=== PATIENT | female | born 1970 | race Caucasian/White ===

== ENCOUNTER 2025-06-03 18:04 | Emergency (ER) | payer OTHER, SELFPAY ==
[2025-06-03 18:05] VITALS: BP 165/95; PULSE 85; RESP 16; TEMP 36.8; O2SAT 100; BMI 23.6
--- NOTE | 2025-06-03 18:37 | RAD_ITS ---
PROCEDURE: RIGHT WRIST MIN 3 VIEWS; HAND MIN 3 VIEWS 06/03/2025 REASON FOR EXAM: SMASHED BY SHOPPING CART TECHNIQUE: Procedure Code: RADWR; ZACH Modality: DX Procedure: WRIST MIN 3 VIEWS; HAND MIN 3 VIEWS COMPARISON: None. FINDINGS: No acute fracture or dislocation. Alignment is anatomic. Mild diffuse interphalangeal joint space narrowing. No osseous erosion or destruction. No appreciable soft tissue swelling. RAD/Hand Min 3 Views IMPRESSION: No acute fracture or dislocation. Reading Location: [id number]
--- NOTE | 2025-06-03 18:37 | RAD_ITS ---
PROCEDURE: RIGHT WRIST MIN 3 VIEWS; HAND MIN 3 VIEWS 06/03/2025 REASON FOR EXAM: SMASHED BY SHOPPING CART TECHNIQUE: Procedure Code: RADWR; ZACH Modality: DX Procedure: WRIST MIN 3 VIEWS; HAND MIN 3 VIEWS COMPARISON: None. FINDINGS: No acute fracture or dislocation. Alignment is anatomic. Mild diffuse interphalangeal joint space narrowing. No osseous erosion or destruction. No appreciable soft tissue swelling. RAD/Wrist min 3 Views IMPRESSION: No acute fracture or dislocation. Reading Location: [id number]
--- NOTE | 2025-06-03 20:56 | EDS_ITS ---
HPI History of Present Illness HPI Narrative: Patient presents with right hand injury that occurred today while she was at work. Patient states she hit her hand on a metal pole of a cart when another person pushed another cart into her hand. Patient states her pain is aching. Patient states it is worse with any movement or lifting. Patient admits to some tingling sensation in her hand. Patient denies any weakness. Patient states her pain is better with rest. Chief Complaint: Upper Extremity Injury Informant: patient Occured/Mechanism Mechanism/Context: Yes blunt trauma Onset/Context/Timing Onset: Today Context: Sudden Onset Timing: Continuous Quality of Pain: Aching Location: Right hand Worsened by: Movement, lifting Relieved by: Rest Associated Symptoms Associated Symptoms: Positive for Parasthesia; Negative for Weakness or Loss of Funtion PFSH PFSH Medical History no medical history no medical history Allergy/AdvReac Type Severity Reaction Status Date / Time No Known Allergies Allergy Verified 06/03/25 18:06 Family History no significant family his Surgical History H/O LEEP Surgical History no surgical history Social History Smoking Status: Never smoker ROS ROS ED Constitutional Constitutional ED: Denies chills or fever(s) Eyes Eyes: Denies blurry vision or change in vision ENT ENT ED: Denies rhinorrhea or sore throat Cardiovascular Cardiovascular: Denies chest pain or palpitations Respiratory/Chest Respiratory/Chest: Denies cough or dyspnea Gastrointestinal Gastrointestinal: Denies nausea or vomiting Genitourinary Genitourinary ED: Denies dysuria or hematuria Musculoskeletal Musculoskeletal: Denies back pain or neck pain Integumentary Denies abscess or rash Neurologic Neurologic: Denies headache(s) or weakness Allergic/Immunologic Allergic/Immunologic ED: Denies mouth swelling or urticaria EXAM Physical Exam Const Vital Signs: 06/03/25 18:05 Temperature 98.3 F Temperature Source Oral Pulse Rate 85 Respiratory Rate 16 Blood Pressure 165/95 H Blood Pressure Mean 118 Pulse Ox 100 Oxygen Delivery Method Room Air Positive well nourished and well developed General Appearance ED: well developed and NAD HEENT Reports moist mucous membranes Neck full ROM and supple Extremity Extremity Narrative: There is tenderness with mild edema and ecchymosis over the dorsal aspect of the 3rd and 4th metacarpals of the right hand. There is also some ecchymosis on the palmar aspect. There is no deformity noted. Range of motion was slightly limited in all motions of the right hand secondary to pain. Sensation was intact to light touch in the radial, median, and ulnar areas. Strength is 5/5 in the radial, median, and ulnar areas. Radial pulses are equal bilaterally. Neuro oriented x3, CN's II-XII intact bilaterally, moves all extremities, no focal motor deficits and no sensory deficits noted Sensorium / Orientation: alert Motor Exam: strength 5/5 throughout Psych mental status grossly normal Skin Skin Narrative: There is a superficial abrasion over the dorsal aspect of the right hand. There is no active bleeding noted. MDM MDM MDM Narrative Medical decision making narrative: Differential diagnosis includes fracture, contusion, and sprain. X-rays of the right wrist will be obtained to assess for fracture. X-rays of the right hand will be obtained to assess for fracture. Radiography Diagnostic Testing: Clinical Impression(s) from Imaging Studies Hand X-Ray 06/03/25 18:37 IMPRESSION: No acute fracture or dislocation. Reading Location: [facility] Wrist X-Ray 06/03/25 18:37 IMPRESSION: No acute fracture or dislocation. Reading Location: [facility] X-rays of the right hand were obtained. There are 3 views. On my independent interpretation, there is no acute fracture. There is no dislocation. There is no soft tissue swelling. Radiologist also interpreted the x-rays and agrees. X-rays of the right wrist were obtained. There are 3 views. On my independent interpretation, there is no acute fracture. There is no dislocation. There is no soft tissue swelling. Radiologist also interpreted the x-rays and agrees. Treatment and Re-Evaluation Narrative: Patient was given a tetanus booster. Patient was advised of her findings. Patient was given a Velcro wrist splint. Patient was instructed to ice and elevate the right wrist. Patient was instructed to take Tylenol or ibuprofen as needed for pain. Patient was given restrictions for work. Patient was instructed to follow-up with her primary care physician or the [facility] in 5 to 7 days. Patient was instructed to return if worse in any way. Patient understood and was agreeable with the plan. All questions were answered. Discharge Plan Triage Chief Complaint: Upper Extremity Injury ED Provider: Alvaro Bonilla Dx/Rx/DC Orders Clinical Impression: Contusion of right hand, initial encounter, Abrasion of right hand, initial encounter Instructions: ED Hand Contusion Stand Alone Forms: Work Status Form Referrals: [facility] [Non-Staff, None] - 5-7 Days Print Language: British Disposition Disposition: Home, Self Care
[2025-06-03 21:33] VITALS: BP 149/94; PULSE 71; RESP 16; TEMP 36.8; O2SAT 100
== END 2025-06-03 21:58 | disposition home or self-care (01) ==
PROVIDERS: Emergency Provider Emergency Medicine; Visit Provider Emergency Medicine
DX: S60.221A Contusion of right hand, initial encounter (principal); S60.511A Abrasion of right hand, initial encounter; W22.09XA Striking against other stationary object, initial encounter; Y99.0 Civilian activity done for income or pay; Z23 Encounter for immunization
CPT/HCPCS: 73110; 73130; 90715; 99283